=== PATIENT | male | born 1970 | race Caucasian/White ===

== ENCOUNTER 2018-12-17 16:12 | Inpatient (IN) ==
--- NOTE | 2018-12-17 17:31 | Diag Imaging Result Doc PS360 ---
EXAM: CHEST-2 VIEWS 12/17/2018 HISTORY: Productive cough; fever TECHNIQUE: PA and lateral chest COMMENT: There is ill-defined opacity in the suprahilar region of the right upper lobe. This was not clearly present on 06/30/2010. IMPRESSION: Right upper lobe bronchopneumonia. Advise follow-up until clear. Electronically signed by Sarbjit Vora 12/17/2018 5:28 PM
--- NOTE | 2018-12-17 18:17 | PROVIDER DOCUMENTATION ---
HPI-General Adult - General Chief Complaint: Flu Symptoms Stated Complaint: flu symptoms Time Seen by Provider: 12/17/18 17:16 Source: patient Allergies/Adverse Reactions: Patient Allergies Allergy/AdvReac Type Severity Reaction Status Date / Time haloperidol [From Haldol] Allergy Unknown Verified 12/17/18 16:21 Penicillins Allergy Unknown Verified 12/17/18 16:21 Home Medications: Home Medication List Medication Instructions Recorded Confirmed Last Taken Type NK [No Home Medications] 10/16/17 12/17/18 Unknown History - History of Present Illness -Gen Adult Nature of Presenting Problems: Patient is a 48yo M who presents, via EMS, with complaints of nasal congestion, productive cough with yellow sputum, nausea, diarrhea, fever/chills x2 days ago. Patient denies OTC medication usage. Denies CP, SOB, vomiting, back pain, or abdominal pain. Location of Pain/Injury: reports: generalized Pain Radiation: reports: no radiation Quality of Pain: reports: aching Severity: reports: mild Onset/Duration: reports: 2 days ago Timing: reports: still present Context/Activities at Onset: reports: none Modifying Factors: improves with: nothing Associated Symptoms: reports: cough, diarrhea, EENT symptoms, fever/chills, muscle aches, sinus congestion/drainage, nausea. denies: chest pain, dizziness, genitourinary problems, shortness of breath, vomiting, weakness Similar Symptoms Previously?: No Recently seen or treated by another doctor?: No Review of Systems - Adult - REVIEW OF SYSTEMS - ADULT Constitutional: reports: see HPI, chills, fever Eyes: reports: no symptoms reported Ears, Nose, Mouth & Throat: reports: see HPI, sinus problem. denies: ear pain, throat pain Cardiovascular: reports: no symptoms reported. denies: chest pain, palpitations Respiratory: reports: see HPI, cough, excessive sputum production (yellow). denies: shortness of breath, wheezing Gastrointestinal: reports: see HPI, diarrhea, nausea. denies: abdominal pain, vomiting Genitourinary: reports: no symptoms reported Musculoskeletal: reports: no symptoms reported. denies: back pain Integumentary: reports: no symptoms reported Neurological: reports: no symptoms reported. denies: dizziness/vertigo, headache/migraines Psychiatric: reports: no symptoms reported Endocrine: reports: no symptoms reported Past History - Adult - PAST MEDICAL HISTORY-ADULT Review of Records: reports: Nursing Assessment Review, Medications Reviewed Major Childhood Illnesses: reports: denies history Cardiovascular: reports: denies history Respiratory: reports: denies history Gastrointestinal: reports: denies history Obstetrical/Gynecological: reports: denies history Genitourinary: reports: denies history Musculoskeletal: reports: denies history Neurological: reports: denies history Endocrine/Immune: reports: denies history Other Conditions: reports: denies history - IMMUNIZATION STATUS Childhood Immunizations: See Nurse Assessment Flu Vaccine: See Nurse Assessment - FAMILY HISTORY Family History: reviewed, not pertinent - SOCIAL HISTORY Smoking: cigarettes Provider spent 3-5 mins advising pt. on dangers of tobacco.: Discussed manners to quit use, and f/u contacts for add'l counseling. Living Situation: homeless Physical Exam-General - PHYSICAL EXAM-ADULT Initial Vital Signs Reviewed: Yes - CONSTITUTIONAL General Appearance: alert, mild distress. negative: lethargic, slow to respond, obtunded - EYES Eyes: PERRL/EOMI, pink conjunctivae. negative: EOM palsy, scleral icterus - HEAD, EARS, NOSE, MOUTH & THROAT HENMT: normocephalic/atraumatic, moist mucous membranes, normal ENT inspection, TMs normal, pharynx normal, dental decay. negative: angioedema - NECK Neck: non-tender, full range of motion, supple, normal inspection - RESPIRATORY Respiratory: lungs clear, normal breath sounds (L lung rosales), no pleuratic chest pain, no respiratory distress, no accessory muscle use, decreased breath sounds (mildly decreased R lung rosales). negative: crackles, rales, rhonchi, stridor, wheezing, retractions, splinting - CARDIOVASCULAR Cardiovascular: regular rate, rhythm, no gallop - GASTROINTESTINAL (ABDOMEN) Abdominal Exam: normal bowel sounds, non tender, soft - MUSCULOSKELETAL Back Exam: normal inspection Extremity: normal range of motion, non-tender, normal gait, normal inspection - SKIN Integumentary: normal color, warm/dry. negative: cyanosis, jaundice, pallor - NEUROLOGIC Neurologic: grossly normal. negative: abnormal gait, aphasia, EOM palsy - PSYCHIATRIC Psych/Mental Status: normal mood/affect, normal thought content, normal thought process, oriented x 3 Progress - PLAN OF CARE/RESULTS Progress/Plan/Lab Results: Vital Signs - 8 hr 12/17/18 16:18 Temperature 97.9 F Pulse Rate 79 Respiratory Rate 18 Blood Pressure 125/73 O2 Sat by Pulse Oximetry 90 L 12/17/18 17:38 Influenza Screen - Final Nasopharyngeal Orders Category Date Time Status CHEST-2 VIEWS [RAD] Stat Exams 12/17/18 16:45 Completed BLOOD CULTURE [BLDCUL] Stat Lab 12/17/18 17:58 Uncollected CBC WITH ELECTRONIC DIFF [HEME] Stat Lab 12/17/18 17:58 Uncollected COMPREHENSIVE METABOLIC PANEL [CHEM] Stat Lab 12/17/18 17:58 Uncollected INFLUENZA SCREEN A/B Stat Lab 12/17/18 17:38 Completed LACTATE, PLASMA [CHEM] Stat Lab 12/17/18 17:58 Uncollected Imaging results and plan of care discussed with patient. Patient notified of need to obtain IV, draw labs, and admit for f/u CXRs for pneumonia. Patient refused labs and IV. Dr. Gagnon consulted regarding plan of care. Dr. Gagnon spoke with patient and patient accepted IV and admission. Result Diagrams: 12/17/18 19:10 12/17/18 19:10 - EKG 1 Time of EKG reading by physician:: 20:19 EKG Read and Signed by:: Phuc Gagnon EKG Interpretation (*Must complete 3 of following elements*): Abnormal Rate: 60 Rhythm: NSR with short OH Kelly: normal QRS: normal OH Interval: normal ST Wave: normal Comments: short OH - XRAY 1 XRAY: Bilateral XRAY Study: Chest Impression: See EMR Report ([facility] - [address] [place] [address] [place] [id number] [facility] - [address] [id number] Department of Imaging Patient: LEYDA PETER Date: 12/17/18MR#: [id number] : 1970ADM Status: PRE ERAcct#: [id number] Age/Sex: 48/MRoom/Bed: Loc: ED Ordering Physician: Poly Vincent Family Physician: None,PCP Reason for Procedure: Productive cough; fever ___ Signed EXAM: CHEST-2 VIEWS 12/17/2018 HISTORY: Productive cough; fever TECHNIQUE: PA and lateral chest COMMENT: There is ill-defined opacity in the suprahilar region of the right upper lobe. This was not clearly present on 06/30/2010. IMPRESSION: Right upper lobe bronchopneumonia. Advise follow-up until clear. Electronically signed by Sarbjit Vora 12/17/2018 5:28 PM 12/17/181727 Interpreting Physician: Sarbjit Vora MD Dictated Date/Time: 12/17/181727 cc: Poly Randle; None,PCP) - CONSULTS/PCP/HOSPITALIST Notification #1 *Consult/PCP/Hospitalist*: Russell Joel Time Discussed: 19:59 Reason/Comments: Bronchopneumonia; f/u CXR Consult Disposition: Admit Departure - Departure Date of Disposition Decision: 12/17/18 Time of Disposition Decision: 20:01 DIAGNOSIS: Bronchopneumonia, Tobacco use Disposition: ADMITTED INPATIENT 09 Certified Medical Emergency: Emergent Condition: Stable Referrals and Follow-Ups: None,PCP [Primary Care Provider] - - Critical Care Note This patient required my direct & personal management of CC.: No Attestation - Physician/ LUIS Attestation Patient care was provided by Advanced Practice Provider:: Yes Advanced Practice Provider:: Poly Randle Advanced Practice Provider documentation review:: The Mid-level provider documentation, treatment plan and medical decision making was reviewed by the physician who agrees with all treatment and medical decision making by the [facility]. The physician spent face to face time with patient:: Yes (Chelsi) Advanced Practice Provider documentation review:: Supervising physician onsite and consulted in the evaluation and care of this patient. The physician did have a face to face encounter with the patient.
[2018-12-17] MEDS ORDERED: LEVAQUIN 750 MG/D5W 750 MG/150 ML IVPB IV ONE (18:40)
[2018-12-17 19:45] LABS: BASO# 0.01 X1000 (0.0-0.2); BASO% 0.2 % (0.0-0.8); EOS# 0.11 X1000 (0.0-0.7); EOS% 1.7 % (0.0-10.0); HEMATOCRIT 46.4 % (42.0-52.0); HEMOGLOBIN 15.3 g/dL (14.0-18.0); IMM GRAN# 0.02 X1000 (0.0-0.04); IMM GRAN% 0.3 % (0.0-0.5); LYMPH# 1.81 X1000 (1.2-3.4); LYMPH% 27.8 % (20.5-51.1); MCH 28.5 PG (27-31); MCV 86.4 FL (81-99); MONO# 0.81 X1000 (0.11-0.59); MONO% 12.4 % (1.7-9.3); NEUT# 3.75 X1000 (1.4-6.5); NEUT% 57.6 % (42.2-75.2); PLT 194 X1000 (130-400); RBC 5.37 XMIL (4.7-6.1); RDW 13.5 % (11.5-14.5); WBC 6.51 X1000 (4.8-10.8)
[2018-12-17 19:55] LABS: AGAP 12; ALB/GLOB RATIO 2.2; ALBUMIN 4.2 g/dL (3.5-5.0); ALKALINE PHOSPHATASE 92 U/L (32-122); BUN 14 mg/dL (8-22); CALCIUM 8.7 mg/dL (8.8-10.2); CHLORIDE 102 mmol/L (98-107); CK PROFILE 182 U/L (24-204); COSMO 284; CREATININE 0.8 mg/dL (0.7-1.2); ESTIMATED GFR > 60; GLUCOSE 112 mg/dL (70-104); GPT 17 U/L (10-44); POTASSIUM 3.7 mmol/L (3.5-5.1); SODIUM 142 mmol/L (136-145); TCO2 28 mmol/L (25-35); TOTAL BILIRUBIN 0.26 mg/dL (0.20-1.00); TOTAL PROTEIN 6.1 g/dL (6.3-8.3)
[2018-12-17 20:02] LABS: GOT 18 U/L (10-34)
[2018-12-17] MEDS ORDERED: NICODERM PATCH TD ONE (20:14)
--- NOTE | 2018-12-17 20:34 | EKG Report ---
Test Performed on : 12/17/2018 8:19:18 PM Test Reason : PNA Blood Pressure : / mmHG Vent. Rate : 060 BPM Atrial Rate : 060 BPM P-R Int : 104 ms QRS Dur : 080 ms QT Int : 424 ms P-R-T Axes : 030 047 042 degrees QTc Int : 424 ms Sinus rhythm. with short [place] Otherwise normal ECG When compared with ECG of 29-JUN-2010 21:52, T wave amplitude has decreased in Anterior leads Unconfirmed Result
[2018-12-17 22:20] LABS: URINE SOURCE CLEAN CATCH
[2018-12-17 22:23] LABS: BILIRUBIN URINE NEGATIVE (NEGATIVE); BLOOD URINE NEGATIVE (NEGATIVE); COLOR YELLOW; GLUCOSE URINE TRACE mg/dL (NEGATIVE); KETONE URINE NEGATIVE (NEGATIVE); LEUKOCYTES URINE NEGATIVE (NEGATIVE); NITRITE URINE NEGATIVE (NEGATIVE); PROTEIN URINE TRACE mg/dL (NEGATIVE); SP GRAVITY URINE 1.029; TURBIDITY URINE CLEAR (CLEAR); UROBILINOGEN URINE NORMAL (NORMAL)
--- NOTE | 2018-12-17 22:45 | HISTORY AND PHYSICAL ---
PRIMARY CARE PHYSICIAN: None. CHIEF COMPLAINT: Cough, fever, not feeling well. HISTORY OF PRESENTING ILLNESS: This is a 48-year-old, homeless male without any significant past medical history who presented to the emergency department with a several days history of having cough that is productive of some yellowish material. He states that he was having fever during this time. He was evaluated in the emergency department. He had imaging done, which did show pneumonia and due to his presenting symptoms, it was thought that he would need admission for further management. At the time of my examination, he denied any nausea vomiting, diarrhea, chest pain, hemoptysis, but complained of shortness of breath, cough and fever. PAST MEDICAL HISTORY: None. PAST SURGICAL HISTORY: Right eye surgery, tonsillectomy, appendectomy. ALLERGIES: Penicillin, haloperidol. CURRENT MEDICATIONS: He does not recall and nursing staff will reconcile. SOCIAL HISTORY: 20+ pack years history of smoking. Denies any history of alcohol or illicit drug use. FAMILY HISTORY: No history of coronary disease. REVIEW OF SYSTEMS: Fourteen-point review of systems is as in HPI. Other systems negative. PHYSICAL EXAMINATION: GENERAL: Cooperative, friendly male. He is resting more comfortably now. VITAL SIGNS: Temperature 98.4 degrees, pulse 71, respirations 16, blood pressure 122/73. HEENT: Atraumatic, normocephalic. Extraocular movements intact. PERRLA. Poor dentition. NECK: No masses. CHEST: Rales. CARDIOVASCULAR: Regular rate and rhythm. ABDOMEN: Soft, positive bowel sounds. EXTREMITIES: No edema. NEUROLOGIC: He is awake, alert, oriented x3. : No bladder distention. SKIN: Warm. LABORATORIES AND STUDIES: WBC 6.51, hemoglobin 15.3, hematocrit 46.4, platelets 194,000, sodium 142, potassium 3.7, chloride 102, CO2 is 28, BUN is 14, creatinine 0.8, glucose is 112. Plasma lactate is 1.4. Chest x-ray shows right upper lobe bronchopneumonia. ASSESSMENT: A 48-year-old male without any significant past medical history presented to the emergency department with several days history of having cough fever and shortness of breath. He was evaluated in the emergency department. He had imaging done which did show bronchopneumonia. Subsequently he required admission for further management. 1. Bronchopneumonia. 2. Ongoing tobacco abuse. PLAN: 1. We will admit patient to medical floor with telemetry. 2. We will check blood cultures. Start patient on IV antibiotics. 3. We will continue with James bueno. 4. Counseled patient on smoking cessation. 5. Put patient on DVT prophylaxis with SCDs. 6. We will continue to follow and reassess. Make further recommendation based on patient's clinical course. cc: Shorty Joel MD
[2018-12-17] MEDS ORDERED: LOVENOX SUBQ SCH (22:50)
[2018-12-17] MEDS ORDERED: ZOFRAN IV PRN (22:50)
[2018-12-17] MEDS ORDERED: NS 1,000 ML IV SCH (22:50)
[2018-12-17] MEDS ORDERED: NS 1,000 ML IV ONE (22:50)
[2018-12-17 22:58] LABS: UR EPITHELIAL CELLS <10 /HPF (<10); URINE BACTERIA NEGATIVE /HPF; URINE RBC <10 /HPF (<10); URINE WBC <10 /HPF (<10)
[2018-12-17 23:30] LABS: URINE CASTS NONE SEEN; URINE CRYSTALS NONE SEEN; URINE SMALL ROUND CELLS NONE SEEN; URINE YEAST NONE SEEN
[2018-12-18 03:47] VITALS: BP 118/65
[2018-12-18 05:13] LABS: BASO# 0.02 X1000 (0.0-0.2); BASO% 0.4 % (0.0-0.8); EOS# 0.11 X1000 (0.0-0.7); EOS% 2.4 % (0.0-10.0); HEMATOCRIT 44.9 % (42.0-52.0); HEMOGLOBIN 14.8 g/dL (14.0-18.0); LYMPH# 1.15 X1000 (1.2-3.4); LYMPH% 25.6 % (20.5-51.1); MCH 28.8 PG (27-31); MCV 87.4 FL (81-99); MONO% 13.3 % (1.7-9.3); MPV 9.2 FL (7.4-10.4); NEUT# 2.62 X1000 (1.4-6.5); NEUT% 58.3 % (42.2-75.2); PLT 168 X1000 (130-400); RBC 5.14 XMIL (4.7-6.1); RDW 13.7 % (11.5-14.5)
[2018-12-18 05:55] LABS: AGAP 11; BUN 16 mg/dL (8-22); CALCIUM 8.6 mg/dL (8.8-10.2); CHLORIDE 107 mmol/L (98-107); COSMO 286; CREATININE 0.8 mg/dL (0.7-1.2); ESTIMATED GFR > 60; GLUCOSE 123 mg/dL (70-104); MAGNESIUM 1.9 mg/dL (1.5-2.7); POTASSIUM 4.2 mmol/L (3.5-5.1); SODIUM 142 mmol/L (136-145); TCO2 24 mmol/L (25-35)
[2018-12-18] MEDS ORDERED: LEVAQUIN 750 MG/D5W 750 MG/150 ML IVPB IV SCH (20:00)
--- NOTE | 2018-12-19 10:00 | DISCHARGE SUMMARY ---
ADMISSION DATE: 12/17/2018 DISCHARGE DATE: 12/18/2018 DISCHARGE AGAINST MEDICAL ADVICE NOTE: HOSPITAL COURSE: The patient presented with complaints of dyspnea and cough. He was found to have pneumonia. The patient has history of homelessness and poor follow up. He was admitted for treatment. He was afebrile and satting well on room air. The patient received initial treatment with Levaquin on arrival, but in the early hours of the next morning he left against medical advice before any additional antibiotics were given. I was not able to see him as he left AMA at approximately 4 a.m. DISCHARGE DIAGNOSES: 1. Pneumonia. 2. Homelessness. 3. Noncompliance. 4. Tobacco abuse. DISCHARGE MEDICATIONS: None. Patient left against medical advice. FOLLOWUP: None arranged. The patient left against medical advice. [facility]
== END 2018-12-18 07:00 | disposition left against medical advice (07) | DRG 195 ==
LOC: SUPCPDRO → ED 16:12 → 1N 22:31 → SUATTDRO 22:31
PROVIDERS: ATTEND Internal Medicine